=== PATIENT | female | born 1995 | race American Indian/Alaskan Native ===

== ENCOUNTER 2017-03-05 16:47 | Emergency (ER) | payer SELFPAY ==
[2017-03-05 19:36] VITALS: BP 111/56
== END 2017-03-05 20:05 | disposition left against medical advice (07) ==
LOC: ED 16:47
DX: Z53.21 Procedure and treatment not carried out due to patient leaving prior to being seen by health care provider (principal)

== ENCOUNTER 2017-09-23 07:36 | Emergency (ER) | payer MEDICAID ==
[2017-09-23 09:18] VITALS: BP 121/74
[2017-09-23] MEDS ORDERED: PERCOCET 5/325 PO ONE (10:56)
[2017-09-23] MEDS ORDERED: MOTRIN PO ONE (10:56)
--- NOTE | 2017-09-23 11:22 | Emergency Department Report ---
ED Extremity Problem HPI - General Chief complaint: Extremity Injury, Upper Stated complaint: PAIN IN LEFT ARM Time Seen by Provider: 09/23/17 10:48 Source: patient Mode of arrival: Ambulatory Limitations: No Limitations - History of Present Illness Initial comments: Patient is a 22-year-old [place] female who is planning a left arm pain. Patient states pain has been hurting for approximately 24 hours. Patient states that there has been no injury. Patient does have a history of sickle cell. Patient is afebrile and pain in his elbow is 10 out of 10 in severity. Severity scale (0 -10): 10 - Related Data Previous Rx's Medication Instructions Recorded Last Taken Type Ibuprofen [Motrin] 800 mg PO Q8HR PRN #20 tablet 09/23/17 Unknown Rx oxyCODONE /ACETAMINOPHEN [Percocet 1 tab PO Q6HR PRN #12 tablet 09/23/17 Unknown Rx 5/325] Allergies Allergy/AdvReac Type Severity Reaction Status Date / Time No Known Allergies Allergy Verified 09/23/17 09:18 ED Review of Systems ROS: Stated complaint: PAIN IN LEFT ARM Other details as noted in HPI Comment: All other systems reviewed and negative ED Past Medical Hx - Past Medical History Previous Medical History?: Yes Hx Sickle Cell Disease: Yes Hx Asthma: Yes - Surgical History Past Surgical History?: No - Social History Smoking Status: Never Smoker - Medications Home Medications: Home Medications Medication Instructions Recorded Confirmed Last Taken Type Ibuprofen [Motrin] 800 mg PO Q8HR PRN #20 tablet 09/23/17 Unknown Rx oxyCODONE /ACETAMINOPHEN [Percocet 1 tab PO Q6HR PRN #12 tablet 09/23/17 Unknown Rx 5/325] ED Physical Exam - General Limitations: No Limitations General appearance: alert, in no apparent distress - Head Head exam: Present: atraumatic, normocephalic - Eye Eye exam: Present: normal appearance - ENT ENT exam: Present: mucous membranes moist - Neck Neck exam: Present: normal inspection - Respiratory Respiratory exam: Present: normal lung sounds bilaterally. Absent: respiratory distress - Cardiovascular Cardiovascular Exam: Present: regular rate, normal rhythm. Absent: systolic murmur, diastolic murmur, rubs, gallop - GI/Abdominal GI/Abdominal exam: Present: soft, normal bowel sounds - Extremities Exam Extremities exam: Present: normal inspection, full ROM, tenderness (patient has some mild tenderness on palpation to the left elbow). Absent: pedal edema, joint swelling - Back Exam Back exam: Present: normal inspection - Neurological Exam Neurological exam: Present: alert, oriented X3 - Psychiatric Psychiatric exam: Present: normal affect, normal mood - Skin Skin exam: Present: warm, dry, intact, normal color. Absent: rash ED Course Vital Signs 09/23/17 09/23/17 09:14 11:08 Temperature 98.3 F Pulse Rate 88 Respiratory 18 18 Rate Blood Pressure 121/74 O2 Sat by Pulse 98 Oximetry ED Medical Decision Making - Medical Decision Making Emely is a 22-year-old Female with past medical history of sickle cell who is complaining of left arm pain. Patient has no deformity swelling or tenderness or erythema to this arm. She has a good pulse. Patient is able to hydrate orally and patient be started on pain meds be discharged home. Critical care attestation.: If time is entered above; I have spent that time in minutes in the direct care of this critically ill patient, excluding procedure time. ED Disposition Clinical Impression: Sickle cell anemia with pain Disposition: DC-01 TO HOME OR SELFCARE Is pt being admited?: No Does the pt Need Aspirin: No Condition: Stable Instructions: Sickle Cell Crisis (ED) Referrals: PRIMARY CARE, [Primary Care Provider] - 3-5 Days
== END 2017-09-23 11:35 | disposition home or self-care (01) ==
LOC: ED 07:36
DX: D57.1 Sickle-cell disease without crisis (principal); J45.909 Unspecified asthma, uncomplicated
CPT/HCPCS: 99282